=== PATIENT | female | born 1945 | race Caucasian/White ===

== ENCOUNTER → 2022-03-04 | Day surgery (SDC) | payer OTHER ==
[2022-03-01 12:31] LABS: BASOPHILS % 0.5 % (0.0-1.0); EOSINOPHILS # (AUTO) 0.1 (0.0-0.4); EOSINOPHILS % 1.9 % (0.0-6.0); HEMATOCRIT 43.8 % (34.2-44.1); HEMOGLOBIN 13.7 g/dL (12.0-16.0); LYMPHOCYTES # (AUTO) 1.4 (1.0-3.2); LYMPHOCYTES % 21.9 % (18.0-39.1); MEAN CORPUSCULAR HEMOGLOBIN 31.9 pg (28-32); MEAN CORPUSCULAR HGB CONC 31.3 g/dL (31-35); MEAN CORPUSCULAR VOLUME 101.9 fL (81-99); MONOCYTES # (AUTO) 0.6 (0.2-0.8); MONOCYTES % 8.9 % (4.4-11.3); NEUTROPHILS # (AUTO) 4.1 (2.1-6.9); NEUTROPHILS % 66.6 % (38.7-80.0); PLATELET COUNT 197 x10e3/uL (140-360)
[~2022-03-04] MED LIST: AMLODIPINE BESYL5 MG PO; ARIMIDEX1 MG PO; BREZTRI AEROS10.7 GM INH; CLOPIDOGREL75 MG PO; HYDROCHLOROTHIA25 MG PO; LIPITOR10 MG PO; LOSARTAN POTASS25 MG PO; MONTELUKAST SOD10 MG PO; OXYBUTYNIN CHLOR5 MG PO; OYSTER SHELL 51 EACH PO; PANTOPRAZOLE SO40 MG PO; PRESERVISION A1 EAC4 PO; PROLIA60 MG/1 ML INJ; PROPOFOL IV EMULSION 10 MG/ML 20 ML VIAL ONE
[2022-03-04 11:00] VITALS: BP 130/70
== END | disposition home or self-care (01) ==
LOC: OR 05:29
PROVIDERS: ATTEND Internal Medicine Gastroenterology
DX: K29.70 Gastritis, unspecified, without bleeding (principal); K62.1 Rectal polyp; K31.7 Polyp of stomach and duodenum; K22.2 Esophageal obstruction; K44.9 Diaphragmatic hernia without obstruction or gangrene; K57.30 Diverticulosis of large intestine without perforation or abscess without bleeding; K64.8 Other hemorrhoids; E78.5 Hyperlipidemia, unspecified; J45.909 Unspecified asthma, uncomplicated; Z01.810 Encounter for preprocedural cardiovascular examination; Z01.812 Encounter for preprocedural laboratory examination; Z79.02 Long term (current) use of antithrombotics/antiplatelets; Z79.899 Other long term (current) drug therapy
CPT/HCPCS: 36415; 43239; 45378; 85025; 88305; 88312; 88342; 93005